=== PATIENT | male | born 1990 | race African-American/Black ===

== ENCOUNTER 2021-01-28 16:44 | Emergency (ER) | payer OTHER ==
[~2021-01-28] VITALS: Ht 177.8 cm; Wt 93.8 kg
[2021-01-28 16:57] VITALS: BP 143/82
[2021-01-28] MEDS ORDERED: SMZ/TMP 800/160MG TABLET. PO ONE (17:00)
[2021-01-28] MEDS ORDERED: DIPH,PERTUSS(ACELL),TET VAC/PF 0.5 ML SYRINGE. VAX IM ONE (17:15)
[2021-01-28] MEDS ORDERED: IBUP600T16 PO ×2 (17:51→18:31)
[2021-01-28] MEDS ORDERED: MUPI22OI2 TP ×2 (17:51→18:31)
[2021-01-28] MEDS ORDERED: SULF1TAB24 PO ×2 (17:51→18:31)
--- NOTE | 2021-01-28 17:52 | PHYS DOC ---
Past History Past Medical History: No Pertinent History Past Surgical History: Other Additional Past Surgical Histo: Max/facial reconstruction to zygoma/orbit Alcohol Use: None Adult General Chief Complaint Chief Complaint: SKIN PROBLEM HPI HPI Patient is a 30-year-old male presents to the emergency department chief complaint of a boil on his chest that he noticed 3 days ago. Patient states last night it came to ahead and he "popped it "in which greenish material came out that he described as malodorous. Patient states that it has been giving him pain of a 10 out of 10 since he popped it. Patient denies any other physical complaints or physical concerns. Patient denies allergies to medications, states he takes no medications at home, states he does not have a primary care physician. Patient reports his last tetanus immunization was greater than 5 years ago. Patient states he is completed his Covid vaccination series and received an influenza immunization in 2019. Patient denies chest pain, shortness of breath, cough or congestion, fever or chills. Patient denies any other abscesses or boils on his body. Review of Systems Review of Systems 14 body systems of review of systems have been reviewed. See HPI for pertinent positives and negative responses, otherwise all other systems are negative, nonpertinent or noncontributory. Current Medications Current Medications Current Medications Medications (Trade) Dose Ordered Sig/Martina Start Time Stop Time Status Last Admin Dose Admin Diphtheria/ Pertussis/Tetanus Vacc (ADACEL TDap SYRINGE) 0.5 ml ONCE ONCE 01/28/21 17:15 01/28/21 17:24 DC 01/28/21 17:23 0.5 ML Trimethoprim/ Sulfamethoxazole (Bactrim Ds) 1 tab 1X ONCE 01/28/21 17:00 01/28/21 17:24 DC 01/28/21 17:22 1 TAB Allergies Allergies Allergies Coded Allergies Type Severity Reaction Last Updated Verified No Known Drug Allergies 01/28/21 No Physical Exam Physical Exam Constitutional: Well developed, well nourished, no acute distress, non-toxic appearance. 30-year-old male in no apparent distress. HENT: Normocephalic, atraumatic, bilateral external ears normal, oropharynx moist, no oral exudates, nose normal. Eyes: PERRLA, EOMI, conjunctiva normal, no discharge. Neck: Normal range of motion, no tenderness, supple, no stridor. Cardiovascular:Heart rate regular rhythm, no murmur Lungs & Thorax: Bilateral breath sounds clear to auscultation no adventitious lung sounds appreciated. There is a 2 cm fluctuant abscess with induration with a central punctum, scant drainage. No other abnormalities of the anterior thorax appreciated. Abdomen: Bowel sounds normal, soft, no tenderness, no masses, no pulsatile masses. Skin: Warm, dry, no erythema, no rash. See thorax exam for focused skin exam assessment. Back: No tenderness, no CVA tenderness. Extremities: No tenderness, no cyanosis, no clubbing, ROM intact, no edema. Neurologic: Alert and oriented X 3, normal motor function, normal sensory function, no focal deficits noted. Psychologic: Affect normal, judgement normal, mood normal. Current Patient Data Vital Signs Vital Signs Date Time Temp Pulse Resp B/P (MAP) Pulse Ox O2 Delivery O2 Flow Rate FiO2 01/28/21 16:57 98.3 73 16 143/82 (102) 100 EKG EKG [] Radiology/Procedures Radiology/Procedures [] Heart Score C/O Chest Pain: No Risk Factors: Risk Factors: DM, Current or recent (<one month) smoker, HTN, HLP, family history of CAD, obesity. Risk Scores: Risk Factors: DM, Current or recent (<one month) smoker, HTN, HLP, family history of CAD, obesity. Course & Med Decision Making Course & Med Decision Making Pertinent Labs and Imaging studies reviewed. (See chart for details) 30-year-old male, vital signs reviewed, presents emergency department with a chief complaint of a boil on his chest that has been there for 3 days. Physical examination consistent with draining abscess to center chest, there is a 2 cm fluctuant abscess with induration, I&D not indicated, will treat with Bactrim DS twice daily x7 days, mupirocin ointment applications. [facility]. The patient's tetanus status was brought up-to-date in the ER today with Adacel/Tdap. Patient gave verbal understanding of discharge home instructions, antibiotic use, follow-up with primary care for reevaluation of abscess, return to ER precautions or concerns. Patient was discharged home without incident. After patient was discharged from ED, I was informed that patient is a resident of the [facility] and their prescriptions need to be in written form so the [facility] staff can hand carry them to their preferred pharmacy. Prescriptions were originally sent to [facility] pharmacy here in [facility], I have since discontinued the transmitted prescriptions and printed them as per [facility] staff request. Dragon Disclaimer Dragon Disclaimer This electronic medical record was generated, in whole or in part, using a voice recognition dictation system. Departure Departure: Impression: Primary Impression: Abscess of chest wall Disposition: HOME / SELF CARE / HOMELESS Condition: GOOD Referrals: PCP,NO (PCP) Patient Instructions: Abscess Additional Instructions: You were seen today in the emergency department for an abscess on your chest, there was not an indication for drainage on today's visit, I am starting you on both an oral and topical antibiotic, please use as directed. You had indicated that you do not have a primary care provider, you may consider using the [facility] at [facility] [address] [place] [address], the telephone number is [phone]. Please call for an appointment for reevaluation of your abscess and ongoing healthcare needs. Please return to the emergency department for worsening symptoms or other concerns. EMERGENCY DEPARTMENT GENERAL DISCHARGE INSTRUCTIONS Thank you for coming to [facility] (ED) today and trusting us with you care. We trust that you had a positivie experience in our Emergency Department. If you wish to speak to the department management, you may call the director at [phone]. YOUR FOLLOW UP INSTRUCTIONS ARE FOLLOWS: 1. Do you have a private Doctor? If you do not have a private doctor, please ask for a resource list of physicians or clinics that may be able to assist you with follow up care. 2. The Emergency Physician has interpreted your x-rays. The X-Ray specialist will also review them. If there is a change in the findings, you will be notified in 48 hours when at all possible. 3. A lab test or culture has been done, your results will be reviewed and you will be notified if you need a change in treatment. ADDITIONAL INSTRUCTIONS AND INFORMATION: 1. Your care today has been supervised by a physician who is specially trained in emergency care. Many problems require more than one evaluation for a complete diagnosis and treatment. We recommend that you schedule your follow up appointment as recommended to ensure complete treatment of you illness or injury. If you are unable to obtain follow up care and continue to have a problem, or if your condition worsens, we recommend that you return to the ED. 2. We are not able to safely determine your condition over the phone nor are we able to give sound medical advice over the phone. For these safety reasons, if you call for medical advice we will ask you to come to the ED for further evaluation. 3. If you have any questions regarding these discharge instructions please call the ED at [phone]. SAFETY INFORMATION: In the interest of safety, wellness, and injury prevention; we encourage you to wear your sealbelt, if you smoke; quite smoking, and we encourage family to use a protective helmet for bicycling and other sporting events that present an increased risk for head injury. IF YOUR SYMPTOMS WORSEN OR NEW SYMPTOMS DEVELOP, OR YOU HAVE CONCERNS ABOUT YOUR CONDITION; OR IF YOUR CONDITION WORSENS WHILE YOU ARE WAITING FOR YOUR FOLLOW UP APPOINTMENT; EITHER CONTACT YOUR PRIMARY CARE DOCTOR, THE PHYSICIAN WHOSE NAME AND NUMBER YOU WERE GIVEN, OR RETURN TO THE ED IMMEDIATELY. Scripts Sulfamethoxazole/Trimethoprim (BACTRIM DS TABLET) 1 Each Tablet 1 TAB PO BID for skin infection for 7 Days, #14 TAB 0 Refills Prov: RONNY WAKEFIELD APRN 01/28/21 Mupirocin (MUPIROCIN) 22 Gm Oint...g. 1 LIZBETH TP TID for skin infection, #22 GM 0 Refills Prov: RONNY WAKEFIELD APRN 01/28/21 Ibuprofen (IBUPROFEN) 600 Mg Tablet 600 MG PO TID PRN PRN for PAIN, #20 TAB 0 Refills Prov: RONNY WAKEFIELD APRN 01/28/21 RONNY WAKEFIELD APRN Jan 28, 2021 17:52
== END 2021-01-28 17:57 | disposition home or self-care (01) ==
LOC: ER 16:44
DX: L02.213 Cutaneous abscess of chest wall (principal)
CPT/HCPCS: 90471; 90715; 99283

== ENCOUNTER 2021-02-08 20:11 | Emergency (ER) | payer OTHER ==
[~2021-02-08] VITALS: Ht 177.8 cm; Wt 93.8 kg
[~2021-02-08 20:11] MED LIST: IBUP600T16 PO; MUPI22OI2 TP; SULF1TAB24 PO
--- NOTE | 2021-02-08 20:46 | PHYS DOC ---
Past History Past Medical History: No Pertinent History (ISABEL ADAMS APRN) Past Surgical History: Other Additional Past Surgical Histo: Max/facial reconstruction to zygoma/orbit (ISABEL ADAMS APRN) Alcohol Use: None (ISABEL ADAMS APRN) General Adult EDM: Chief Complaint: ABSCESS HPI: HPI: Patient is a 30-year-old male who presents with abscess under left armpit. Patient states he noticed the abscess popped up a few days ago. Patient does report it is tender to the touch. Patient was recently placed on antibiotics for a abscess on the middle of his chest. Patient denies health history. (ISABEL ADAMS APRN) Review of Systems: Review of Systems: Constitutional: Denies fever or chills Eyes: Denies change in visual acuity HENT: Denies nasal congestion or sore throat Respiratory: Denies cough or shortness of breath Cardiovascular: Denies chest pain or edema GI: Denies abdominal pain, nausea, vomiting, bloody stools or diarrhea : Denies dysuria Musculoskeletal: Denies back pain or joint pain Integument: Abscess under left armpit Neurologic: Denies headache, focal weakness or sensory changes Endocrine: Denies polyuria or polydipsia Lymphatic: Denies swollen glands Psychiatric: Denies depression or anxiety (ISABEL ADAMS APRN) Allergies: Allergies: Allergies Coded Allergies Type Severity Reaction Last Updated Verified No Known Drug Allergies 01/28/21 No (ISABEL ADAMS APRN) Physical Exam: PE: Constitutional: Well developed, well nourished, no acute distress, non-toxic appearance. [] HENT: Normocephalic, atraumatic, bilateral external ears normal, oropharynx moist, no oral exudates, nose normal. [] Eyes: PERRLA, EOMI, conjunctiva normal, no discharge. [] Neck: Normal range of motion, no tenderness, supple, no stridor. [] Cardiovascular:Heart rate regular rhythm, no murmur [] Lungs & Thorax: Bilateral breath sounds clear to auscultation [] Abdomen: Bowel sounds normal, soft, no tenderness, no masses, no pulsatile masses. [] Skin: Warm, nonfluctuant abscess Back: No tenderness, no CVA tenderness. [] Extremities: No tenderness, no cyanosis, no clubbing, ROM intact, no edema. [] Neurologic: Alert and oriented X 3, normal motor function, normal sensory function, no focal deficits noted. [] Psychologic: Affect normal, judgement normal, mood normal. [] (ISABEL ADAMS APRN) Current Patient Data: Vital Signs: Vital Signs Date Time Temp Pulse Resp B/P (MAP) Pulse Ox O2 Delivery O2 Flow Rate FiO2 7// 20:27 97.7 89 18 131/78 Room Air (ISABEL ADAMS APRN) EKG: EKG: [] (ISABEL ADAMS APRN) Radiology/Procedures: Radiology/Procedures: [] (ISABEL ADAMS APRN) Heart Score: C/O Chest Pain: No Risk Factors: Risk Factors: DM, Current or recent (<one month) smoker, HTN, HLP, family history of CAD, obesity. Risk Scores: Score 0 - 3: 2.5% MACE over next 6 weeks - Discharge Home Score 4 - 6: 20.3% MACE over next 6 weeks - Admit for Clinical Observation Score 7 - 10: 72.7% MACE over next 6 weeks - Early Invasive Strategies (ISABEL ADAMS APRN) Course & Med Decision Making: Course & Med Decision Making Pertinent Labs and Imaging studies reviewed. (See chart for details) [] 30-year-old male presents with abscess under left armpit. Abscess is tender, warm to the touch, non-fluctuant abscess. Explained to patient that abscess was not ready for I&D. Patient given a prescription for Bactrim. Patient instructed to return to emergency room or follow-up with his PCP if abscess does not improve or worsens. Patient is hemodynamically stable. Patient is appreciative and okay with discharge plan. (ISABEL ADAMS APRN) Dragon Disclaimer: Dragon Disclaimer: This electronic medical record was generated, in whole or in part, using a voice recognition dictation system. (ISABEL ADAMS APRN) Departure Departure: Impression: Primary Impression: Abscess of left axilla Disposition: HOME / SELF CARE / HOMELESS Condition: STABLE Referrals: PCP,NO (PCP) Patient Instructions: Abscess, [id number] Additional Instructions: You were seen in the emergency room for abscess under your left armpit. I am sending you home on a prescription for Bactrim. Please take the antibiotic as directed. Abscess was not ready for an incision and drain at this time. If you feel like the abscess does not improve or worsens in the next 48 to 72 hours please follow-up with your PCP or return the emergency room to have I&D. EMERGENCY DEPARTMENT GENERAL DISCHARGE INSTRUCTIONS Thank you for coming to [facility] (ED) today and trusting us with you care. We trust that you had a positivie experience in our Emergency Department. If you wish to speak to the department management, you may call the director at [phone]. YOUR FOLLOW UP INSTRUCTIONS ARE FOLLOWS: 1. Do you have a private Doctor? If you do not have a private doctor, please ask for a resource list of physicians or clinics that may be able to assist you with follow up care. 2. The Emergency Physician has interpreted your x-rays. The X-Ray specialist will also review them. If there is a change in the findings, you will be notified in 48 hours when at all possible. 3. A lab test or culture has been done, your results will be reviewed and you will be notified if you need a change in treatment. ADDITIONAL INSTRUCTIONS AND INFORMATION: 1. Your care today has been supervised by a physician who is specially trained in emergency care. Many problems require more than one evaluation for a complete diagnosis and treatment. We recommend that you schedule your follow up appointment as recommended to ensure complete treatment of you illness or injury. If you are unable to obtain follow up care and continue to have a problem, or if your condition worsens, we recommend that you return to the ED. 2. We are not able to safely determine your condition over the phone nor are we able to give sound medical advice over the phone. For these safety reasons, if you call for medical advice we will ask you to come to the ED for further evaluation. 3. If you have any questions regarding these discharge instructions please call the ED at [phone]. SAFETY INFORMATION: In the interest of safety, wellness, and injury prevention; we encourage you to wear your sealbelt, if you smoke; quite smoking, and we encourage family to use a protective helmet for bicycling and other sporting events that present an increased risk for head injury. IF YOUR SYMPTOMS WORSEN OR NEW SYMPTOMS DEVELOP, OR YOU HAVE CONCERNS ABOUT YOUR CONDITION; OR IF YOUR CONDITION WORSENS WHILE YOU ARE WAITING FOR YOUR FOLLOW UP APPOINTMENT; EITHER CONTACT YOUR PRIMARY CARE DOCTOR, THE PHYSICIAN WHOSE NAME AND NUMBER YOU WERE GIVEN, OR RETURN TO THE ED IMMEDIATELY. Scripts Sulfamethoxazole/Trimethoprim (BACTRIM DS TABLET) 1 Each Tablet 1 TAB PO BID for ABCESS for 10 Days, #20 TAB 0 Refills Prov: ISABEL ADAMS APRN 02/08/21 Attending Signature Attending Signature I have participated in the care of this patient and I have reviewed and agree with all pertinent clinical information above including history, exam, and recommendations. (ALONSO FRASER MD) ISABEL ADAMS APRN Feb 08, 2021 20:46 ALONSO FRASER MD Feb 09, 2021 00:46
[2021-02-08] MEDS ORDERED: SULF1TAB24 PO (20:49)
[2021-02-08] MEDS: SMZ/TMP 800/160MG TABLET. PO ONE (20:58)
== END 2021-02-08 21:01 | disposition home or self-care (01) ==
LOC: ER 20:11
DX: L02.412 Cutaneous abscess of left axilla (principal)
CPT/HCPCS: 99283